=== PATIENT | female | born 2000 | race Caucasian/White ===

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

== ENCOUNTER → 2021-05-24 | Outpatient (CLI) | payer BC ==
--- NOTE | 2021-05-24 17:12 | Diagnostic Imaging Report ---
EXAMINATION: Left ribs unilateral, two views. HISTORY: Rib pain. COMPARISON: None available. FINDINGS: No rib fracture is seen. The lungs are clear. No edema. No pneumonia. No pleural effusion. No pneumothorax. Heart is normal in size. IMPRESSION: 1. Clear lungs. 2. No rib fracture is seen. Dictated by: Dictated on workstation # [id number]
== END ==
LOC: RAD 16:25
PROVIDERS: ATTEND Nurse Practitioner Family
DX: R07.81 Pleurodynia (principal)
CPT/HCPCS: 71100

== ENCOUNTER → 2022-01-09 | Outpatient (CLI) | payer BC ==
--- NOTE | 2022-01-09 14:50 | Diagnostic Imaging Report ---
INDICATION: Left elbow pain 3 views of left elbow show no fracture, dislocation or pathologic effusion. IMPRESSION: Negative left elbow Dictated by: Dictated on workstation # [id number]
== END ==
LOC: RAD FS 11:53
PROVIDERS: ATTEND Nurse Practitioner
DX: M25.522 Pain in left elbow (principal)
CPT/HCPCS: 73080

== ENCOUNTER → 2022-02-24 | Outpatient (CLI) | payer BC | LOC: LAB FS 14:39 | PROVIDERS: ATTEND Obstetrics & Gynecology | DX: Z32.00 Encounter for pregnancy test, result unknown (principal); N91.2 Amenorrhea, unspecified | CPT/HCPCS: 36415; 84144; 84702 ==

== ENCOUNTER → 2022-09-04 | Outpatient (CLI) | payer BC, OTHER ==
--- NOTE | 2022-09-04 16:01 | Diagnostic Imaging Report ---
EXAMINATION: Left elbow radiographs, 3 views COMPARISON: January 09, 2022. HISTORY: 21-year-old female, left elbow pain after injury. FINDINGS: There is no identified acute fracture. There is no cortical or aggressive bone destruction. The elbow is not dislocated. There is no elbow joint effusion. Joint spaces are well preserved. There is no radiopaque foreign body. IMPRESSION: Unremarkable radiographs of the left elbow. Dictated by: Dictated on workstation # [id number]
== END ==
LOC: RAD FS 13:40
PROVIDERS: ATTEND Nurse Practitioner
DX: M25.522 Pain in left elbow (principal)
CPT/HCPCS: 73080